=== PATIENT | male | born 1995 | race Caucasian/White ===

== ENCOUNTER 2019-06-05 09:34 | Emergency (ER) | payer OTHER ==
[~2019-06-05] VITALS: Ht 190.5 cm; Wt 145.2 kg
[2019-06-05 09:48] VITALS: BP 149/101
[2019-06-05] MEDS ORDERED: KEFLEX500 M1 PO (10:00)
== END 2019-06-05 10:45 | disposition home or self-care (01) ==
LOC: M.ERS 09:34
DX: S61.431A Puncture wound without foreign body of right hand, initial encounter (principal); F17.210 Nicotine dependence, cigarettes, uncomplicated; Z98.890 Other specified postprocedural states; X58.XXXA Exposure to other specified factors, initial encounter; Y93.89 Activity, other specified; Y92.89 Other specified places as the place of occurrence of the external cause; Y99.8 Other external cause status